=== PATIENT | male | born 1990 | race African-American/Black ===

== ENCOUNTER 2022-02-22 09:41 | Emergency (ER) | payer OTHER ==
[2022-02-22 09:51] VITALS: BP 125/73; PULSE 73; RESP 18; TEMP 98.6; BMI 23.2
[2022-02-22] MEDS ORDERED: RALTEGRAVIR POTASSIUM 400 MG TAB PO ONE (10:05)
[2022-02-22] MEDS ORDERED: EMTRICITABINE 200MG/TENOFOVIR 300MG PO ONE (10:05)
[2022-02-22] MEDS ORDERED: HIV POST EXPOSURE PROPHYLAXIS KIT PO ONE (10:16)
[2022-02-22 10:42] LABS: BASO % 0.6 % (0-2.0); HEMATOCRIT 43.8 % (35.4-49); HEMOGLOBIN 14.4 GM/dL (11.7-16.9); MCH 29.7 pg (25.7-33.7); MCHC 32.8 g/dl (32.0-35.9); MEAN CELL VOLUME 90.6 fl (80-96); MEAN PLT VOLUME 9.7 fl (7.5-11.1); MONO % 5.6 % (3.8-10.2); NEUT % 65.8 % (42.8-82.8); PLATELET COUNT 217 10^3/uL (134-434); RBC 4.84 M/mm3 (4.00-5.60); WHITE BLOOD COUNT 4.5 K/mm3 (4.0-10.0)
[2022-02-22 11:04] LABS: CALCIUM 9.4 mg/dL (8.5-10.1)
[2022-02-22 11:06] LABS: BLOOD UREA NITROGEN 17.6 mg/dL (7-18)
[2022-02-22 11:07] LABS: URIC ACID 4.9 mg/dL (2.6-7.2)
[2022-02-22 11:08] LABS: CREATININE 1.1 mg/dL (0.55-1.3)
[2022-02-22 11:17] LABS: BILIRUBIN,TOTAL 0.5 mg/dL (0.2-1); PHOSPHOROUS 4.4 mg/dL (2.5-4.9); TOT PROT 7.5 g/dl (6.4-8.2)
[2022-02-22 11:59] LABS: HIV INTERPRETATION NEGATIVE (NEGATIVE)
== END 2022-02-22 10:51 | disposition home or self-care (01) ==
LOC: JERFT 09:41
DX: S61.032A Puncture wound without foreign body of left thumb without damage to nail, initial encounter (principal); W46.1XXA Contact with contaminated hypodermic needle, initial encounter; Z20.6 Contact with and (suspected) exposure to human immunodeficiency virus [HIV]
CPT/HCPCS: 36415; 80053; 82465; 82977; 83615; 84100; 84478; 84550; 85025; 86704; 86803; 87340; 87389; 87517; 99283-25